=== PATIENT | male | born 1940 | race Caucasian/White ===

== ENCOUNTER 2020-12-22 21:03 | Inpatient (IN) | payer OTHER ==
[~2020-12-22] VITALS: Ht 188 cm; Wt 104.7 kg
--- NOTE | ~2020-12-22 | EMS ---
[address] [address] EMS Patient Care Report Name: JOSÉ MIGUEL SALINAS JR Room #: REG Ama#: [id number] Admission: 12/22/20 Attend Phys: Discharge: Date of : 42 Report #: [id number] THIS REPORT FOR: //name// Report Transmitted: 12/22/2020 21:01 EMS Care Summary [place], [place]/[facility] Incident [id number] @ 12/22/2020 20:18 Incident Location [address] [place], [place] [id number] Patient JOSÉ MIGUEL SALINAS Male, 80 Years 1940 Patient Address [address] [place] [address] Patient History Diabetes,Hypertension (HTN),Knee Replacement,Enlarged prostate, Patient Allergies Aspirin,Codeine, Patient Medications Clotrimazole, Glipizide, Metformin, Tamsulosin, Vitamin B12, Atorvastatin, Hydrochlorothiazide (Hctz), Insulin, Timolol, Acetaminophen, Lisinopril, Hydrocodone, Atropine, Cholecalciferol, Gabapentin, Chief Complaint ALTERED MENTAL STATUS Disposition Transported No Lights/[place] Dispatch Reason Diabetic Problem Transported To [facility] Narrative DISPATCHED TO A DIABETIC PROBLEM. ARRIVED ON SCENE TO FIND FIRE CREW TALKING WITH MALE PATIENT SEATED ON THE BED IN THE BACK BEDROOM. THEY WERE OBTAINING [place] [id number] EMS Patient Care Report Name: JOSÉ MIGUEL SALINAS JR Room #: REG [facility]#: [id number] Admission: 12/22/20 Attend Phys: Discharge: Date of : 42 Report #: [id number] VITALS AND PATIENT'S SON EXPLAINED THAT 3 DAYS AGO HIS FATHER HAD A BIOPSY OF HIS PROSTATE DONE AND SINCE THEN HE HAS BEEN ACTING MORE CONFUSED THAN NORMAL. HE SAID HE WAS ALSO GIVEN AN ANTIBIOTIC FOLLOWING HIS APPOINTMENT. THE PATIENT SAID HE FELT LIKE HE HAS BEEN HAVING CRAMPS SINCE THE PROCEDURE MAKING HIM FEEL LIKE HE HAS TO URINATE CONSTANTLY. HE SAID HE IS NOT ANY ANY PAIN AT THIS TIME. HE ALSO AGREED THAT HE FEELS A LITTLE MORE CONFUSED THAN NORMAL. PATIENT WAS ASSISTED IN WALKING TO THE COT AT THE FRONT DOOR, SEATED, SECURED WITH STRAPS, AND MOVED TO THE AMBULANCE. HIS VITALS WERE REOBTAINED AND IV WAS STARTED. PATIENT WAS GIVEN A URINAL BECAUSE HE SAID HE FELT LIKE HE NEEDED TO URINATE. HE WAS TRANSPORTED TO THE HOSPITAL WITH VITALS AND INTERVENTIONS MONITORED. UPON ARRIVAL AT THE HOSPITAL PATIENT WAS MOVED INTO ED ROOM 6 ON THE COT AND LIFTED OVER TO THE HOSPITAL BED. PATIENT CARE WAS TURNED OVER TO ED NURSING STAFF. Initial Vitals @20:42P: 107,BP: 206/86,CO: 19,SpO2: 93, @20:47P: 107,BP: 208/78,CO: 17,SpO2: 93, @20:36P: 106,R: 18,BP: 211/84,Pain: 0/10,GCS: 14,Glucose: 291,SpO2: 98,Revised Trauma: 12,GA Suspected: false @20:52P: 107,R: 16,BP: 208/89,Pain: 0/10,GCS: 14,CO: 16,SpO2: 93,Revised Trauma: 12, Assessments @20:31MENTAL:Confused,Person Oriented,Place Oriented,SKIN:HEENT:Eyes: Left: Blind,Head/Face: No Abnormalities,Neck/Airway: No Abnormalities,LUNG SOUNDS:General: No Abnormalities,Left Upper: No Abnormalities,Right Upper: No Abnormalities,Left Lower: No Abnormalities,Right Lower: No Abnormalities,ABDOMEN:General: No Abnormalities,Left Upper: No Abnormalities,Right Upper: No Abnormalities,Left Lower: No Abnormalities,Right Lower: No Abnormalities,PELVIS//GI:No Abnormalities,EXTREMITIES:Left Arm: Other,Left Leg: Other,Capillary Refill: Right Upper: < 2 Sec,Right Arm: No Abnormalities,Right Leg: No Abnormalities,PULSE:Radial: 2+ Normal,NEURO: Impression Altered Mental Status Procedures @20:31ALS AssessmentResponse: UnchangedSucceeded@20:44Saline Lock 10cc (18 ga) Site: Antecubital-RightResponse: UnchangedSucceeded@20:363-Lead ECGResponse: UnchangedSucceeded Timeline 20:16,Call Received 20:16,Dispatch Notified 20:18,Dispatched 20:18,En Route [address] [address] EMS Patient Care Report Name: JOSÉ MIGUEL SALINAS JR Room #: REG [facility] S[facility]#: [id number] Admission: 12/22/20 Attend Phys: Discharge: Date of : 42 Report #: [id number] 20:29,On Scene 20:31,At Patient 20:31,ALS Assessment,Response: UnchangedSucceeded, 20:36,3-Lead ECG,Response: UnchangedSucceeded, 20:36,BP: 211/84 M,PULSE: 106,RR: 18 R,SPO2: 98 Ox,ETCO2: ,B,PAIN: 0,GCS: 14, 20:42,BP: 206/86 M,PULSE: 107,RR: R,SPO2: 93 Ox,ETCO2: ,BG: ,PAIN: ,GCS: , 20:44,Saline Lock 10cc 18 ga Site: Antecubital-Right,Response: UnchangedSucceeded, 20:45,Depart Scene 20:47,BP: 208/78 M,PULSE: 107,RR: R,SPO2: 93 Ox,ETCO2: ,BG: ,PAIN: ,GCS: , 20:52,BP: 208/89 M,PULSE: 107,RR: 16 R,SPO2: 93 Ox,ETCO2: ,BG: ,PAIN: 0,GCS: 14, 20:57,At Destination 21:13,Call Closed Disclaimer v1.1 Copyright 2020 [employer] This EMS Care Summary contains data elements from the applicable legal record (which may be displayed differently). It is designed to provide pertinent information for the following purposes: continuity of care, clinical quality, and state data reporting. The complete legal record is available to ED staff and administrators of the receiving hospital in [employer] Patient Tracker. All data is provided "as is."
[2020-12-22 21:04] VITALS: BP 150/73
[2020-12-22 21:34] LABS: ABSOLUTE NEUTROPHILS 13.3 thou/uL (1.4-8.2); BASOPHILS 0.4 % (0.0-2.0); HEMATOCRIT 35.4 % (42.0-52.0); HEMOGLOBIN 11.9 gm/dL (14.0-18.0); LYMPHOCYTES 2.2 % (24.0-44.0); MCH 28.6 pg (26.0-34.0); MCHC 33.6 g/dL (28.0-37.0); MCV 85.3 fL (80.0-100.0); MONOCYTES 5.2 % (1.0-8.0); PLATELET COUNT 181 thou/uL (150-400); POLYS 92.2 % (36.0-66.0); RBC 4.15 mil/uL (4.50-6.00); RDW 14.2 % (10.5-14.5); WBC 14.4 thou/uL (4.0-11.0)
[2020-12-22 21:43] LABS: CALCIUM 9.1 mg/dL (8.5-10.1); POTASSIUM 4.9 mmol/L (3.5-5.1)
[2020-12-22 21:57] LABS: ALBUMIN 3.8 g/dL (3.4-5.0); TOTAL BILIRUBIN 0.8 mg/dL (0.2-1.0); TOTAL PROTEIN 8.1 g/dL (6.4-8.2)
[2020-12-22 22:59] LABS: URINE BILIRUBIN NEGATIVE (Negative); URINE BLOOD 2+ (Negative); URINE CLARITY CLEAR; URINE COLOR YELLOW; URINE GLUCOSE-RANDOM* 2+ (Negative); URINE KETONES NEGATIVE (Negative); URINE LEUKOCYTES-REFLEX NEGATIVE (Negative); URINE NITRITE-REFLEX NEGATIVE (Negative); URINE PROTEIN (DIPSTICK) 2+ (Negative); URINE SPECIFIC GRAVITY 1.025 (1.005-1.035); URINE UROBILINOGEN 0.2 E.U./dl (0.2-1.0)
[2020-12-22 23:07] LABS: BACTERIA-REFLEX 1-9 Few /HPF (None Seen); CASTS None Seen /LPF (None Seen); CRYSTALS None Seen /LPF (None Seen); MUCUS 0-3 Light strn/LPF (None Seen); SQUAMOUS 0-3 Few /LPF (0-3); URINE WBC-REFLEX 0-5 Rare /HPF (0-5)
[2020-12-23] VITALS (14 sets, daily range): BP systolic 138–163; BP diastolic 76–102
[2020-12-23 02:01] LABS: BE(vivo) -7.1 mmol/L (-2 to +3); PCO2 30.3 mmHg (35.0-45.0); PO2 160.6 mmHg (80.0-100.0); pH 7.366 (7.360-7.450)
--- NOTE | 2020-12-23 15:21 | NUR ---
PATIENT ARRIVED ON UNIT AT 1320. BELONGINGS ACCOUNTED FOR AND DOCUMENTED. PATIENT'S SON ARRIVED AT 1440 AND HE WAS UPDATED AND EDUCATED ON THE PATIENT'S CONDITION AND PLAN OF CARE.
--- NOTE | 2020-12-23 16:44 | NUR ---
Chart review. Unable to visit with patient r/t use of bipap. Noted he had prostate bx few days ago at the [facility]. Change in AMS. Note has son and daughter listed for contacts. No anticipated dc over the weekend. will cont. following as needed for dc needs. PCP is at [facility].
--- NOTE | 2020-12-23 23:30 | NUR ---
This RN spoke to Accie the third, son, at 1944. Discussed patient status and care plan. All questions answered.
[2020-12-24] VITALS (24 sets, daily range): BP systolic 116–160; BP diastolic 64–92
[2020-12-24 02:12] LABS: ABSOLUTE NEUTROPHILS 17.6 thou/uL (1.4-8.2); BASOPHILS 0.2 % (0.0-2.0); HEMATOCRIT 36.7 % (42.0-52.0); HEMOGLOBIN 11.8 gm/dL (14.0-18.0); MCH 27.4 pg (26.0-34.0); MCHC 32.3 g/dL (28.0-37.0); MONOCYTES 6.4 % (1.0-8.0); PLATELET COUNT 150 thou/uL (150-400); POLYS 89.4 % (36.0-66.0); RBC 4.31 mil/uL (4.50-6.00); RDW 14.7 % (10.5-14.5); WBC 19.7 thou/uL (4.0-11.0)
[2020-12-24 02:26] LABS: ALBUMIN 2.6 g/dL (3.4-5.0); CALCIUM 8.1 mg/dL (8.5-10.1); CREATININE 2.4 mg/dL (0.7-1.3); POTASSIUM 4.6 mmol/L (3.5-5.1); TOTAL BILIRUBIN 0.8 mg/dL (0.2-1.0); TOTAL PROTEIN 6.6 g/dL (6.4-8.2)
[2020-12-24 04:36] LABS: BE(vivo) -6.9 mmol/L (-2 to +3); HCO3 15.3 mmol/L (22.0-26.0); PCO2 22.8 mmHg (35.0-45.0); PO2 71.8 mmHg (80.0-100.0); pH 7.445 (7.360-7.450); sO2 95.4 % (92.0-98.0)
--- NOTE | 2020-12-24 05:58 | HC ---
[facility] [place] [address] CONSULTATION Name: JOSÉ MIGUEL SALINAS JR Room #: 237-P ADM IN M.R.#: [id number] Admission: 12/23/20 Attend Phys: Maverick Teran MD Discharge: Date of : 42 Report #: [id number] THIS REPORT FOR: cc: FAM - Family physician unknown FAM - Family physician unknown Kaden Hudson MD ~ DOC #: [id number] Kaden Hudson MD DATE OF SERVICE: 12/23/2020 INFECTIOUS DISEASE CONSULTATION ATTENDING PHYSICIAN: Dr. Teran. REASON FOR EVALUATION: Gram-negative septicemia, likely post-procedure prostate biopsy. Also, respiratory failure perhaps a component of pneumonitis with respiratory as a result of aspiration. HISTORY OF PRESENT ILLNESS: Chart reviewed and the patient examined. A 80-year-old with known history of diabetes mellitus, who also had a urinary tract dysfunction apparently underwent biopsy yesterday became increasingly encephalopathic. He was found to have a decrease in urine output and progressive weakness due to concerns about clinical deterioration, possible infectious complication. He was referred to the Emergency Room and found to have a lactic acid elevated at 5.1. Urinalysis was fairly unremarkable, did have 2+ blood. Coronavirus testing was negative. Blood cultures now with growth of gram-negative rods. He has been initiated on combination therapy with vancomycin and Zosyn. At this point, he is quite somnolent. He does arouse briefly, although he is maintained on BiPAP, difficult to ascertain his degree of encephalopathy, noted to have low-grade temperature elevations, although he has been tachycardic. ALLERGIES: None known. MEDICATIONS: Include vancomycin, pantoprazole, ipratropium and albuterol inhaler, acetaminophen, ondansetron, Zosyn as needed, p.r.n. analgesics and antiemetics. PAST MEDICAL HISTORY: As noted above, diabetes mellitus, history of BPH, left eye blindness. SOCIAL HISTORY: Nonsmoker. FAMILY HISTORY: Noncontributory. REVIEW OF SYSTEMS: Not reliably obtained. [address] [address] CONSULTATION Name: JOSÉ MIGUEL SALINAS Room #: 237-P [facility] IN M.R.#: [id number] Admission: 12/23/20 Attend Phys: Maverick Teran MD Discharge: Date of : 42 Report #: [id number] PHYSICAL EXAMINATION: GENERAL: Appears chronically ill, undernourished. He does arouse, make eye contact. VITAL SIGNS: Temperature 98.9, pulse 97, respirations 25, blood pressure 155/84, saturations 100%. HEENT: Normocephalic. Extraocular muscles intact. He does have BiPAP in place. NECK: Appears to be supple. LUNGS: Scattered coarse breath sounds. HEART: Borderline tachycardic. Appears regular with some ectopy. I do not appreciate any murmur. ABDOMEN: Mildly distended, somewhat firm. No peritoneal signs. GENITOURINARY AND RECTAL: Deferred. LABORATORY DATA: Blood cultures described above with gram-negative carl. Lactic acid initially 5.1, repeat now 2.4. ABGs: pH 7.366, pCO2 of 30.3, pO2 of 160.6 on FiO2 100%. Coronavirus testing was negative. Urinalysis: 2+ blood, 2+ protein, 0-5 white cells, ____ bacteria. Urine culture pending. Procalcitonin elevated at 2.70. Chest x-ray, patchy infiltrate medial right base. CBC: White count of 14.4, H and H 11.9 and 35.4, platelets of 181. Electrolytes: Sodium 133, potassium 4.9, chloride 100, bicarbonate is 20, anion gap of 13, BUN and creatinine 35 and 2.0, glucose of 259. LFTs unremarkable. Albumin 3.8. Total protein 8.1, estimated GFR 32. ASSESSMENT AND PLAN: 1. Gram-negative septicemia setting of a recent genitourinary tract procedure suspect that is the source, although ____ have marked pyuria. Agree with empiric coverage with Zosyn. 2. Pneumonitis perhaps on the basis of altered mental status due to sepsis with aspiration. Again, he remains quite tenuous at this point. Continue to monitor oxygen ventilatory support as required. 3. Diabetes mellitus. We will continue to monitor expectantly. Kaden Hudson MD JWB/ALL <ELECTRONICALLY SIGNED> By: Kaden Hudson MD 12/24/20 0558 1047 [id number] Kaden Hudson MD /nt
--- NOTE | 2020-12-24 09:18 | NUR ---
GARETT COPELAND AT 0700. SPOKE WITH PATIENT'S TWO DAUGHTERS AND THEY WERE UPDATED AND EDUCATED ON THE PATIENT'S CONDITION AND PLAN OF CARE.
[2020-12-25] VITALS (25 sets, daily range): BP systolic 86–131; BP diastolic 47–75
--- NOTE | 2020-12-25 04:21 | NUR ---
ASSUMED CARE OF PATIENT AT 1900. PATIENT FEBRILE, RECTAL THERMOMETER PLACED FOR CONSISTENT MONITORING. TYLENOL GIVEN WITH NO REDUCTION IN TEMP. ICE PACKS PLACE, PATIENT THREW THEM ON THE FLOOR. ORDER FOR 1 DOSE OF IBPROFEN OBTAINED, SLIGHT REDUCTION IN TEMP. TYLENOL GIVEN AGAIN, APPROACHING NORMAL TEMP. REMAINS TACHYCARDIC. NOT PROGRESSING TOWARDS POC GOALS AT THIS TIME.
[2020-12-25 04:28] LABS: CALCIUM 7.6 mg/dL (8.5-10.1); CREATININE 2.9 mg/dL (0.7-1.3); POTASSIUM 3.4 mmol/L (3.5-5.1); TOTAL BILIRUBIN 0.9 mg/dL (0.2-1.0); TOTAL PROTEIN 5.9 g/dL (6.4-8.2)
--- NOTE | 2020-12-25 08:49 | NUR ---
RN SPOKE WITH PT'S PATEL BREWER AND GAVE PT UPDATE. DANIELLA STATES SHE WILL BE IN LATER TODAY TO SEE THE PATIENT.
--- NOTE | 2020-12-25 11:08 | NUR ---
A #6F TRIPLE LUMEN CENTRAL LINE WAS PLACED PER HOSPITAL POLICY AFTER A BEDSIDE TIMEOUT WAS COMPLETED. THE 25CM LINE ADVANCED WITHOUT DIFFICULTY TO 7CM EXTERNAL. THE LINE WAS PLACED IN THE RIGHT IJ- WHICH WAS WIDLEY PATENT. A STAT CHEST XRAY SHOWS LINE IN GOOD POSITION FOR USE
--- NOTE | 2020-12-25 11:39 | NUR ---
2L NS BOLUS GIVEN PER RENAL AND SODIUM BICARB STARTED. POTASSIUM REPLACED PER RENAL. CENTRAL LINE PLACED PER RENAL. BLOOD CULTURES DRAWN, 2 SETS AND SENT TO LAB. UROLOGY RECONSULTED PER REQUEST OF DR. PATRICIA. ALSO CONSULTED GENERAL SURGERY WHO ROUNDED ON PT THIS AM AND AGREE'S WITH UROLOGY RECONSULT. URINE OUTPUT REMAINS MINIMAL AND RENAL WELL HOSPITALIST ARE AWARE. PT REMAINS TACHYCARDIC AND CARDIOLOGY IS AWARE AND STATED THE TACHYCARDIA IS NOT A CAUSE OF A HEART ISSUE RATHER THAN BODY RESPONSE TO ISSUES IT IS FACING. WILL CONTINUE TO CLOSELY MONITOR PT.
--- NOTE | 2020-12-25 12:11 | NUR ---
PT'S SON ARRIVED AND IS BEDSIDE WITH PATIENT. PT VERY HAPPY TO SEE HIS SON. PT UPDATE GIVEN TO SON.
--- NOTE | 2020-12-25 13:31 | NUR ---
PATIENT HAS BEEN OFF OF BIPAP SINCE APPROX. 0130 ON 12/25. PATIENT ON 2LNC AND MAINTAINING SATURATION. NO ISSUES ALL BREATHING TREATMENTS WERE ADMINISTERED.
--- NOTE | 2020-12-25 14:15 | NUR ---
DR. MIRANDA HAS CALLED TO CHECK ON THE PT AT 0930 AND 1345. PT UPDATE GIVEN TO DR AT TIME OF EACH CALL. PT CONTINUES TO HAVE MINIMAL URINE OUTPUT DESPITE BEING GIVEN 2 L OF NS BOLUS. NEW ORDER RECEIVED FOR 3 BOLUS OF 1L NS. PT IS ALSO TO REMAIN ON BICARB WELL PER DR. MIRANDA. WILL CONTINUE TO CLOSELY MONITOR PT.
--- NOTE | 2020-12-25 17:53 | NUR ---
RN CALLED IR DEPARTMENT TO CALL IR CONSULT FOR DR. CHAMBERS. STAFF ANSWERED PHONE AND STATED REQUEST FOR IR CONSULT TO DRAIN FLUID FOR PT PRINTED IN DEPARTMENT AND WAS PLACED IN PHYSICIAN'S IN BOX. STAFF STATES THERE ARE NO IR PHYSICIANS IN HOUSE AT THIS TIME AND SINCE ORDER IS ROUTINE, PHYSICIAN WILL SEE IT IN AM OF 12/26.
--- NOTE | 2020-12-25 19:15 | NUR ---
UROLOGY WAS RECONSULTED TODAY AND ROUNDED ON PT. CT CYSTOGRAM ORDERED AND AFTER RESULTS CALLED TO UROLOGIST, ORDER TO ROUTINE CONSULT IR TO DRAIN FLUID COLLECTION.
--- NOTE | 2020-12-25 22:44 | NUR ---
TYLENOL GIVEN FOR FEVER. TEMP CURRENTLY 101.8. PT C/O FEELING COLD AND WANTS MORE BLANKETS, BUT HE UNDERSTANDS HE HAS A FEVER AND CANNOT BE COVERED WITH MULTIPLE BLANKETS. C/O GENERALIZED BODY ACHES AND LEFT LE CHRONIC PAIN. PER RENAL, NO NARCOTICS DUE TO POOR RENAL FUNCTION. ST W/ PVCS. HR 110S-120S. IV ABX AND IVF INFUSING ORDERED. PT REFUSED TO EAT DINNER, DESPITE ENCOURAGEMENT TO EAT SOME FOOD. BOLTON IN PLACE WITH ADEQUATE UO SO FAR THIS EVENING. NOT PROGRESSING WELL TOWARD POC GOALS. WILL CONTINUE TO MONITOR CLOSELY. 2206 - PT'S SON (JOSÉ MIGUEL SALINAS III) CALLED UNIT. UPDATE PROVIDED ON POC AND PLAN FOR IR TO DRAIN ABDOMEN TOMORROW. ALL QUESTIONS ANSWERED.
[2020-12-26] VITALS (39 sets, daily range): BP systolic 92–152; BP diastolic 59–91
--- NOTE | 2020-12-26 04:05 | NUR ---
PT DID NOT SLEEP MUCH DURING THE NIGHT. HE CONTINUED TO C/O BODY ACHES EVEN AFTER GIVEN TYLENOL. NO NARCOTICS OR NSAIDS PER RENAL DUE TO POOR KIDNEY FUNCTION. FEVER IS SLOWLY IMPROVING WITH TYLENOL. CURRENT TEMP 100.5, WHICH IS THE LOWEST HIS FEVER HAS BEEN SO FAR THIS SHIFT. REPOSITIONED HE WOULD ALLOW TO PREVENT ANY SKIN BREAKDOWN. SPO2 >92% ON 2L NC. FALL PRECAUTIONS IN PLACE. NOT PROGRESSING WELL TOWARD POC GOALS. WILL MONITOR FURTHER.
[2020-12-26 04:43] LABS: ALBUMIN 1.6 g/dL (3.4-5.0); CREATININE 3.2 mg/dL (0.7-1.3); PHOSPHORUS 2.4 mg/dL (2.6-4.7); POTASSIUM 3.3 mmol/L (3.5-5.1)
--- NOTE | 2020-12-26 07:11 | EKG ---
[address] [address] ELECTROCARDIOGRAM REPORT Name: JOSÉ MIGUEL SALINAS KENDRA Room #: 237-P ADM IN M.R.#: [id number] Admission: 12/23/20 Attend Phys: Maverick Teran MD Discharge: Date of : 42 Report #: [id number] [facility] Test Date: 2020-12-24 Test Time: 15:47:11 Pat Name: JOSÉ MIGUEL SALINAS Department: Room: 237 P Gender: M Call Circuit Worker: NERY : 1940 Requested By: Marlee Haynes Order Number: [id number] MD: Singh Wang Measurements Intervals [place] Rate: 130 P: -69 VA: 127 QRS: 3 QRSD: 102 T: 87 QT: 290 QTc: 427 Interpretive Statements Sinus tachycardia Multiple ventricular premature complexes Nonspecific repol abnormality, diffuse leads No previous ECG available for comparison Electronically Signed On 12-26-2020 7:11:36 CDT by Singh Wang [email or web address] <ELECTRONICALLY SIGNED> By: Singh Wang MD, [facility] 12/26/20 0711 1547 1547 Singh Wang MD, FACC /EPI
[2020-12-26 09:52] LABS: HEMATOCRIT 29.5 % (42.0-52.0); MCHC 32.3 g/dL (28.0-37.0); MCV 83.3 fL (80.0-100.0); PLATELET COUNT 161 thou/uL (150-400); RBC 3.54 mil/uL (4.50-6.00); WBC 20.8 thou/uL (4.0-11.0)
[2020-12-26 09:54] LABS: HEMOGLOBIN 9.5 gm/dL (14.0-18.0)
[2020-12-26 10:10] LABS: ALBUMIN 1.6 g/dL (3.4-5.0); CALCIUM 7.2 mg/dL (8.5-10.1); POTASSIUM 3.3 mmol/L (3.5-5.1); TOTAL BILIRUBIN 0.9 mg/dL (0.2-1.0); TOTAL PROTEIN 5.4 g/dL (6.4-8.2)
--- NOTE | 2020-12-26 10:30 | NUR ---
Chart review. Discussed during am rounds and los. Unable to visit r/t discomfort. Possible with be going to OR today. Cm visited with his son chance STERLING, he reported dad lives with him, he is independent. has cane. does his own laundry. son cooks. manage own medication. drives vehicle, mows the grass. [facility]. [facility] not [facility]. Stephenie with [facility] called and cm passed on to cm team, rt question if stable to [facility] to [facility] and his . will cont following as needed for dc needs.
[2020-12-26 11:03] LABS: ABSOLUTE NEUTROPHILS 18.9 thou/uL (1.4-8.2)
[2020-12-26 11:04] LABS: ANISOCYTOSIS 1+
--- NOTE | 2020-12-26 11:33 | 2DMMODE ---
[facility] [address] [place] [address] 2 D/M-MODE ECHOCARDIOGRAM Name: JOSÉ MIGUEL SALINAS Room #: 237-P ADM IN M.R.#: [id number] Admission: 12/23/20 Attend Phys: Maverick Teran MD Discharge: Date of : 42 Report #: [id number] THIS REPORT FOR: cc: FAM - Family physician unknown FAM - Family physician unknown Antoine Weeks MD [facility] ~ APPROVED REPORT Study performed: 12/26/2020 08:42:44 EXAM: Comprehensive 2D, Doppler, and color-flow Echocardiogram Patient Location: ICU Room #: 237 Status: routine BSA: 2.29 HR: 110 bpm BP: 131/71 mmHg Rhythm: Atrial Fibrillation Other Information Study Quality: Good Indications Diabetes Sepsis CAD Tachycardia Cardiomyopathy 2D Dimensions RVDd: 42.13 mm IVSd: 11.93 (7-11mm) LVOT Diam: 24.16 (18-24mm) LVDd: 41.56 mm PWd: 11.57 (7-11mm) Ascending Ao: 28.07 (22-36mm) LVDs: 30.70 (25-40mm) Left Atrium: 48.80 (27-40mm) Aortic Root: 35.83 mm IVC: 33.00 mm Volumes Left Atrial Volume (Systole) Single Plane 4CH: 69.58 mL Single Plane 2CH: 50.29 mL LA ESV Index: 29.00 mL/m2 [facility] [address] [place] [address] 2 D/M-MODE ECHOCARDIOGRAM Name: JOSÉ MIGUEL SALINAS KENDRA Room #: 237-P ADM IN M.R.#: [id number] Admission: 12/23/20 Attend Phys: Maverick Teran MD Discharge: Date of : 42 Report #: [id number] Aortic Valve AoV Peak Jagdish.: 1.01 m/s AO Peak Gr.: 4.08 mmHg LVOT Max P.21 mmHg LVOT Max V: 0.90 m/s GOOD Vmax: 4.06 cm2 Pulmonary Valve PV Peak Jagdish.: 0.90 m/s PV Peak Gr.: 3.27 mmHg Tricuspid Valve TR Peak Jagdish.: 3.19 m/s TR Peak Gr.: 40.68 mmHg PA Pressure: 51.00 mmHg Left Ventricle The left ventricle is normal size. Mild concentric left ventricular hypertrophy. Left ventricular systolic function is borderline. Mild anterior hypokinesis. LVEF is 50%. This study is not technically sufficient to allow evaluation of the LV diastolic function due to atrial fibrillation. Right Ventricle The right ventricle is normal size. The right ventricular systolic function is normal. Atria The left atrium size is normal. The right atrium size is normal. Aortic Valve The aortic valve is mildly calcified. No aortic regurgitation is present. There is no aortic valvular stenosis. Mitral Valve The mitral valve is normal in structure. Mild mitral regurgitation. No evidence of mitral valve stenosis. Tricuspid Valve The tricuspid valve is normal in structure. There is trace tricuspid regurgitation.Estimated PAP 50 mmHg. There is moderate pulmonary hypertension. Pulmonic Valve The pulmonary valve is normal in structure. There is no pulmonic valvular regurgitation. [facility] [address] [place] [address] 2 D/M-MODE ECHOCARDIOGRAM Name: JOSÉ MIGUEL SALINAS Room #: 237-P ADM IN M.R.#: [id number] Admission: 12/23/20 Attend Phys: Maverick Teran MD Discharge: Date of : 42 Report #: [id number] Great Vessels The aortic root is normal in size. IVC is dilated and collapses <50% with inspiration. Pericardium There is no pericardial effusion. <Conclusion> Left ventricular systolic function is borderline. LVEF is 50%. Mild anterior hypokinesis. The aortic valve is mildly calcified. No aortic regurgitation or stenosis. The mitral valve is normal in structure. Mild mitral regurgitation. There is trace tricuspid regurgitation. Estimated pulmonary artery pressure of 50 mmHg. There is no pericardial effusion. <ELECTRONICALLY SIGNED> By: Antoine Weeks MD, [facility] 12/26/20 1133 1133 1133 Antoine Weeks MD, FACC /INF
--- NOTE | 2020-12-26 17:56 | NUR ---
RN RECIEVED IN REPORT THAT PATIENT HAD SOME ABDOMINAL TENDERNESS, FEBRILE, AND BODY ACHES ASSOCIATED WITH FEVER. HOWEVER, WHEN RN DID AM ASSESSMENT, ABDOMEN WAS FIRM, 10/10 PAIN IN LEFT LOWER QUADRANT. HOME IMPROVEMENT INSTALLER/ICU DOC, ATTENDING, UROLOGY, AND GENERAL SURGERY WERE ALL UPDATED. PATIENT TAKEN TO OPERATING ROOM TO HAVE A PELVIC HEMATOMA EVACUATED. 10 CC BLOOD LOSS. TWO ALVARO DRAINS PLACED. AT 1745 HOURS, THE [facility] CONTACTED THE PATIENT'S SON, AND THEN SPOKE TO THIS RN REGARDING THE RESULTS OF THE BIOPSY COMPLETED ON 12/21. THE UROLOGIST FROM THE 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 THIS WAS CALLED TO UROLOGY, PULMONOLOGY/ICU, GENERAL SURGERY, AND ATTENDING.
--- NOTE | 2020-12-26 21:20 | NUR ---
PT HAD NO URINE OUTPUT FOR ABOUT 2 HOURS, ATTEMPTED TO FLUSH BOLTON AND ALL RETURN CAME OUT AROUND BOLTON INSERTION. NOTED THICK LOOKING SUBSTANCE ALONG EDGE OF BOLTON TUBING. PATIENT YELLING OUT IN PAIN WHEN ATTEMPTING TO FLUSH. CALL TO UROLOGY WHO STATED NOTHING WITH THE BLADDER WAS TOUCHED DURING SURGERY AND TO NOT CALL HIM WITH ISSUES. BOLTON REMOVED BY THIS RN IN PREPARATION FOR REPLACEMENT. WHILE SETTING UP STERILE FIELD, PT YELLED LOUDLY AND URINATED, EXPELLING SEVERAL MODERATELY SIZED, [place]AN, THICK PIECES OF WHAT APPEARS TO BE TISSUE. BOLTON REPLACED AND URINE FLOWING WELL. WILL MONITOR AND FLUSH NECESSARY.
[2020-12-27] VITALS (44 sets, daily range): BP systolic 98–128; BP diastolic 50–78
--- NOTE | 2020-12-27 04:23 | NUR ---
SPOKE WITH PT SON, GAVE UPDATE, ANSWERED ALL QUESTIONS WITHIN SCOPE OF PRACTICE
--- NOTE | 2020-12-27 04:34 | NUR ---
pt is pleasant, forgetful, answers all orientation questions correctly, repeats questions over. resting quietly off and on, endorses pain, but states that over all it is better especially in abd and knee.
[2020-12-27 04:40] LABS: ALBUMIN 1.5 g/dL (3.4-5.0); CALCIUM 6.9 mg/dL (8.5-10.1); CREATININE 2.7 mg/dL (0.7-1.3); PHOSPHORUS 3.3 mg/dL (2.5-4.9); POTASSIUM 3.7 mmol/L (3.5-5.1)
--- NOTE | 2020-12-27 08:30 | NUR ---
ASSUMED CARE OF PT AT 0700 DR. FORREST AT BEDSIDE AT 0815, NO NEW ORDERS GIVEN DR. NÚÑEZ AT BEDSIDE AT 0830, HE IS GOING TO STOP HIS FLUIDS AND GIVE A DOSE OF LASIXS SPOKE TO DR. WEST ON THE PHONE AT 0830 HE JUST WANTED AND UPDATE.
[2020-12-28] VITALS (16 sets, daily range): BP systolic 117–160; BP diastolic 59–95
--- NOTE | 2020-12-28 04:35 | NUR ---
PT IS PROGRESSING TOWARD GOALS, VSS, AFEBRILE, TOLERATES TURNS. DOES CONT TO ENDORSE PAIN BUT PAIN IN L KNEE IS RATED HIGHER THAN PAIN IN ABD. ALVARO BULB DRAINAGE DRECREASING. EDEMA SLIGHTLY INCREASED.
[2020-12-28 05:00] LABS: ALBUMIN 1.7 g/dL (3.4-5.0); CALCIUM 7.2 mg/dL (8.5-10.1); CREATININE 2.3 mg/dL (0.7-1.3); PHOSPHORUS 3.2 mg/dL (2.5-4.9); POTASSIUM 3.6 mmol/L (3.5-5.1)
--- NOTE | 2020-12-28 09:17 | NUR ---
Cm visited with pt at bedside, a & o person, time and place (hospital). Education on [facility] and possible transfer when bed is open or use medicare Life time res, 60 days with co-pay. He requested to talk with his son 1st before making and decision.
--- NOTE | 2020-12-28 15:01 | NUR ---
Director Of Slot Operations spoke with son Guru STERLING regarding tx to the [facility] if a bed becomes available or staying here and using his medicare lifetime reserve days. He will discuss with the pt and let us know. No beds available at the [facility] today. The pt does not have a medicare supplemental plan or medicaid to help with any out of pocket or copays.
--- NOTE | 2020-12-28 15:35 | NUR ---
PATIENT TRANSFERED FROM ICU TO CCU. SINUS RHYTHM/TACH ON THE MONTIOR. RATES LEFT KNEE PAIN AT 10/10 - STATES IS CHRONIC. VERY TENDER TO TOUCH. PRN MEDICATION ADMINISTERED. IV ABX INFUSING. BOLTON PATENT. PT ATTEMPTED TO WORK WITH PATIENT THIS AFTERNOON. VOICES NO NEEDS OR CONCERNS AT THIS TIME.
[2020-12-29 01:57] LABS: ABSOLUTE NEUTROPHILS 13.6 thou/uL (1.4-8.2); BASOPHILS 0.3 % (0.0-2.0); EOSINOPHILS 0.9 % (0.0-3.0); HEMATOCRIT 27.5 % (42.0-52.0); LYMPHOCYTES 7.7 % (24.0-44.0); MCH 27.2 pg (26.0-34.0); MCHC 32.7 g/dL (28.0-37.0); MCV 83.3 fL (80.0-100.0); MONOCYTES 8.6 % (1.0-8.0); PLATELET COUNT 156 thou/uL (150-400); POLYS 82.5 % (36.0-66.0); RDW 14.8 % (10.5-14.5); WBC 16.5 thou/uL (4.0-11.0)
[2020-12-29 02:19] LABS: ALBUMIN 1.6 g/dL (3.4-5.0); CALCIUM 7.5 mg/dL (8.5-10.1); PHOSPHORUS 2.7 mg/dL (2.6-4.7); POTASSIUM 3.5 mmol/L (3.5-5.1)
[2020-12-29 03:37] VITALS: BP 154/81
--- NOTE | 2020-12-29 04:17 | NUR ---
ASSESSMENT CHARTED, MEDS CHARTED GIVEN. PATIENT TRANSFERED FROM ICU DURING DAY SHIFT. CONFUSED BUT VERY PLEASANT. SINUS TACH WITH BBB ON TELEMETRY, SINUS ARYTHMIA WITH BBB ON TELEMETRY. PATIENT HAS SCROTAL EDEMA AND LEFT LEG EDEMA. ON ROOM AIR. BOLTON IN PLACE. PATIENT HAS 2 ALVARO DRAINS WITH LITTLE OUTPUT. C/O PAIN 10/10 IN LEFT LEG. MEDS GIVEN. FALL PRECAUTIONS IN PLACE DURING SHIFT.
[2020-12-29 07:25] VITALS: BP 163/88
[2020-12-29 11:15] VITALS: BP 162/86
--- NOTE | 2020-12-29 12:10 | NUR ---
Pt now on ccu and continues on iv atb. CM has spoken with the [facility] and they do have a tele bed today if clinical accepted for transfer. [employer] Vault Attendant reviewed options with the pt at bedside and his son via speaker phone. Both are in agreement to [facility] to the [facility] if [facility] can accept him today. He does not have any secondary ins plan and does utilize the [facility] for pcp and meds. CM has faxed clinical to their transfer RN for consideration. Chart copy in progress as well as radiology (disc). Likely transfer to the [facility] later today discussed with the care team.
[2020-12-29 15:30] VITALS: BP 127/68
[2020-12-29 15:45] VITALS: BP 173/77
--- NOTE | 2020-12-29 16:43 | NUR ---
FAXED SNF REFERRAL WITH NEGATIVE COVID RESULT (12/13) TO [facility] AND [facility]. NOTED DISCHARGE TOMORROW, 12/30/20 OR 12/31/20 AND POSSIBLE LONG-TERM CARE AFTER SKILLED DAYS. WILL CALL TO CONFIRM THE FACILITIES RECEIVED AND BED AVAILABILITY.
--- NOTE | 2020-12-29 17:03 | NUR ---
PT ALERT AND ORIENTED TIMES FOUR. VSS. SR ON TELE. BOLTON TO TERRI. PT C/O PAIN PRN PAIN MEDICATIONS GIVEN WITH GOOD RELEIF. PT TOLEATES MEDS, BUT HAS A VERY POOR APPETITE. PT WORKED FAIR WITH PT/OT. WILL CONTINUE TO MONITOR.
[2020-12-29 19:44] VITALS: BP 173/88
--- NOTE | 2020-12-30 00:55 | NUR ---
ASSESSMENTS CHARTED, MEDS CHARTED GIVEN. PATIENT RESTING IN BED DURING SHIFT. C/O PAIN IN LEFT LEG 02/07. MEDICATED. PATIENT WAS SUPPOSE TO TRANSFER TO THE [place] DURING THE DAY, BUT HIS BED WAS GIVEN AWAY. PLAN IS TO TRANSFER TODAY WHEN A BED BECOMES AVAILABLE. FALL PRECAUTIONS IN PLACE DURING SHIFT.
[2020-12-30 04:10] VITALS: BP 184/79
[2020-12-30 05:37] LABS: ALBUMIN 1.6 g/dL (3.4-5.0); CALCIUM 7.9 mg/dL (8.5-10.1); CREATININE 1.9 mg/dL (0.7-1.3); POTASSIUM 3.1 mmol/L (3.5-5.1)
[2020-12-30 07:25] VITALS: BP 177/81
--- NOTE | 2020-12-30 14:15 | NUR ---
No beds at the [facility] per their transfer nurse. Weekend staff to call the transfer nurse at [phone] or mobile number [phone] to check on a bed Sat/Sun. Pt and son are aware of above and agreeable to tx once a bed is confirmed. [facility] form is on the chart for ambulance transport and the transfer form is also on the chart copy for completion once tx arrangements are in place. Will follow.
[2020-12-30 15:25] VITALS: BP 145/78
[2020-12-30 19:25] VITALS: BP 149/53
[2020-12-30 23:20] VITALS: BP 149/72
--- NOTE | 2020-12-31 03:25 | NUR ---
PT IS ALERT AND ORIENTED X4. LUNGS ARE CLEAR TO DIMINISHED . MED SURG/ [facility]. BOLTON TO DD. LEFT KNEE PAIN. PAIN MEDS GIVEN FOR COMOFORT FOR PT . RELFIEF AND PT SLEEPING AFTERWARDS. LABS DRAWN THIS AM AND SENT. CALL LIGHT WITHIN REACH IF NEEDS ASSISTANCE. WATCHES TV AT TIME.
[2020-12-31 04:14] VITALS: BP 149/72
[2020-12-31 04:23] LABS: ALBUMIN 1.6 g/dL (3.4-5.0); CALCIUM 7.8 mg/dL (8.5-10.1); CREATININE 1.8 mg/dL (0.7-1.3); PHOSPHORUS 3.3 mg/dL (2.5-4.9); POTASSIUM 3.1 mmol/L (3.5-5.1)
[2020-12-31 08:11] VITALS: BP 157/91
--- NOTE | 2020-12-31 10:34 | NUR ---
KHADAR CONTACTED [facility] TRANSFER NURSE AT [phone], AND LEFT FOR BED INQUIRY ON THIS DAY. KHADAR FOLLOWING FOR D/C PLAN
[2020-12-31 16:07] VITALS: BP 154/68
--- NOTE | 2020-12-31 18:03 | NUR ---
TAKE OVER PATIENT AND GET REPORT FROM MAKENNA MITCHELL ON THE FLOOR. PT IS A&0*4 AND FATIGUE. PATINET IS ON ROOM AIR AND TELE MONITOR: HR BETWEEN 90-100 BPM. PT STAY IN BEDREST DUE TO THE GENERAL WEAKNESS. PT REPORT SEVER CHRONIC PAIN ON THE LEFT LEG ESPECIALLY ON THE LEFT KNEE AREA. LIDOCAINE PATCH APPLIED AND TWO DOSE OF NORCO GIVEN DURING THIS DAY SHIFT. BS MONITOR BEFORE MEALS AND 4 UNIT OF INSULIN GIVEN EACH TIME. BOLTON IS INTENT AND SERCURED. BOLTON CARE GIVEN BY COFFEE TASTER. PT HAS BEEN USE THE CALL LIGHT APPROPRIATELY. WILL KEEP MONITOR PATIENT'S PAIN, VS, BS, I&O, WOULD DRAIN AND SAFETY UNTIL SHIFT CHANGE.
[2020-12-31 19:38] VITALS: BP 143/64
[2021-01-01 03:30] VITALS: BP 155/78
[2021-01-01 06:50] LABS: ALBUMIN 1.6 g/dL (3.4-5.0); CALCIUM 7.7 mg/dL (8.5-10.1); CREATININE 1.6 mg/dL (0.7-1.3); POTASSIUM 3.4 mmol/L (3.5-5.1)
--- NOTE | 2021-01-01 06:52 | NUR ---
NOTIFIED BUILDING INSPECTOR THAT BOLTON HAS HEMATURIA AND SOME BLOOD NOTED AROUNG RIGHT IJ SITE, PT NOT ON ANTICOAGULANTS. WILL TELL DAY SHIFT NS TO INFORM DR UPON ROUNDS ORDERED. UA ORDERED SINCE NO RECENT UA SENT.
--- NOTE | 2021-01-01 07:29 | NUR ---
PT PROGRESSING TOWARDS D/C GOALS SLOWLY. VSS. TELE DC'C ORDERED. MILD CONFUSION NOTED AT TIMES. FORGETFUL AND [place] AT TIMES. WOUND CARE TO ABDOMED DONE. INCISION TO ABDOMEN IS WELL APPROXIMATED TAL INTACT. ALVARO INTACT TO R AND L ABDOMEN. NO DRAINAGE NOTED FROM EITHER ALVARO. COLOSTOMY HAD VERY LITTLE LIGHT BROWN STOOL NOTED. BOLTON HAS PINKISH RED HENATURI NOTED IN BOLTON. SHELVING SUPERVISOR WAS NOTIFIED. INFORMED DAY SHIFT NS TO TELL DR UPON ROUNDS RE HEMATURIA AND RIJ HAS SOME LIGHT BLOODY DRAINAGE NOTED. PT IS NOT ON ANTICOAGULANTS. WILL SEND UA ORDERED BY SHELVING SUPERVISOR. MEDICATED FOR LEFT KNEE PAIN 3X LAST NIGHT.
[2021-01-01 07:45] VITALS: BP 161/68
[2021-01-01 09:14] LABS: URINE BLOOD 3+ (Negative); URINE CLARITY CLOUDY; URINE COLOR RED; URINE GLUCOSE-RANDOM* NEGATIVE (Negative); URINE KETONES 2+ (Negative); URINE LEUKOCYTES 3+ (Negative); URINE NITRITE NEGATIVE (Negative); URINE PROTEIN (DIPSTICK) 3+ (Negative); URINE SPECIFIC GRAVITY 1.025 (1.005-1.035); URINE UROBILINOGEN 0.2 E.U./dl (0.2-1.0)
[2021-01-01 09:17] LABS: ICTOTEST (BILI CONFIRMATORY) Negative (Negative); URINE BILIRUBIN NEGATIVE (Negative)
[2021-01-01 09:49] LABS: CASTS None Seen /LPF (None Seen); CRYSTALS None Seen /LPF (None Seen); SQUAMOUS None Seen /LPF (0-3)
[2021-01-01 09:50] LABS: BACTERIA >30 Many /HPF (None Seen); URINE RBC >20 Many /HPF (NONE SEEN); URINE WBC >25 Many /HPF (NONE SEEN)
--- NOTE | 2021-01-01 17:28 | NUR ---
Assumed pt care this am, vs stable. Small frequent feedings done through out the shift. Blood sugar monitored, diet and medications are tolerated well. Small frequent feedings and hydrations through out the shift. Pain is managed with medication partial relief noted. FC in place draining peach urine. Awaiting transfer to [place].
--- NOTE | 2021-01-01 17:45 | NUR ---
Assumed pt care this am, vs stable. Small frequent feedings done through out the shift. Blood sugar monitored, dient and medicatiosn tolerated well. Small fequent feedings and hydration done through out the shift. Pain is managed with meedications, partial relief is noted. FC in place draining peach colored urine. [facility].
[2021-01-01 19:59] VITALS: BP 150/625
--- NOTE | 2021-01-02 04:34 | NUR ---
Pt. rested quietlly during the night when checked on during frequent rounds. Po pain meds given (see emar) with some relief noted. Filiberto drains patent to abdomen. Bed alarm is on.
[2021-01-02 07:25] VITALS: BP 160/83
[2021-01-02 14:20] LABS: HEMATOCRIT 28.9 % (42.0-52.0); HEMOGLOBIN 9.3 gm/dL (14.0-18.0); MCV 84.2 fL (80.0-100.0); RBC 3.44 mil/uL (4.50-6.00); RDW 15.1 % (10.5-14.5)
[2021-01-02 15:40] VITALS: BP 146/75
--- NOTE | 2021-01-02 18:20 | NUR ---
ASSUMED CARE OF PATIENT AT SHIFT CHANGE. ASSESSMENT CHARTED. MEDICATIONS ADMINISTERED PER EMAR. VSS. PATIENT IS ALERT AND ORIENTED BUT CAN BE CONFUSED AT TIMES ESPECIALLY IN THE EVENING. PATIENTS APPETITE IS RETURNING AND HE IS TOLERATING PO INTAKE WELL. PATIENT CONTINUES TO VOICE PAIN THROUGHOUT SHIFT; PARTIALLY RELIEVED BY PO ANALGESIC. SURGICAL INCISION REMAINS INTACT. ALVARO X2 INTACT WITH SCANT DRAINAGE. PATIENT HAVING BM'S (SMEARS); INCONTINENCE THROUGHOUT SHIFTS. BOLTON PATENT IN PLACE WITH GOOD OUTPUT; HEMATURIA STILL PRESENT. UA CULTURE COLLECTED AND SENT TO LAB. REPOSITIONING OFFERED EVERY 2 HOURS AND NEEDED. LIDOCAINE PATCH TO LLE ABOVE KNEE INPLACE. PATIENT VOICING NO FURTHER NEEDS. WILL CONTINUE TO MONITOR & FOLLOW PLAN OF CARE
[2021-01-02 21:35] VITALS: BP 144/72
--- NOTE | 2021-01-03 04:28 | NUR ---
Pt. rested quietly at intervals during the night when checked on during frequent rounds. He c/o knee pain and po pain meds given (see emar) with some relief noted. Bed alarm is on.
[2021-01-03 07:38] VITALS: BP 159/80
[2021-01-03 10:52] LABS: ABSOLUTE NEUTROPHILS 9.7 thou/uL (1.4-8.2); BASOPHILS 0.7 % (0.0-2.0); HEMATOCRIT 26.9 % (42.0-52.0); HEMOGLOBIN 8.7 gm/dL (14.0-18.0); LYMPHOCYTES 7.9 % (24.0-44.0); MCH 27.2 pg (26.0-34.0); MCHC 32.1 g/dL (28.0-37.0); MCV 84.5 fL (80.0-100.0); MONOCYTES 7.1 % (1.0-8.0); PLATELET COUNT 373 thou/uL (150-400); POLYS 83.3 % (36.0-66.0); RBC 3.19 mil/uL (4.50-6.00); RDW 14.7 % (10.5-14.5); WBC 11.7 thou/uL (4.0-11.0)
[2021-01-03 11:07] LABS: ALBUMIN 1.7 g/dL (3.4-5.0); CALCIUM 7.8 mg/dL (8.5-10.1); CREATININE 1.5 mg/dL (0.7-1.3); POTASSIUM 3.7 mmol/L (3.5-5.1); TOTAL BILIRUBIN 0.5 mg/dL (0.2-1.0); TOTAL PROTEIN 6.1 g/dL (6.4-8.2)
[2021-01-03] MEDS ORDERED: LEVOFLOXACIN500 MG PO (12:29)
--- NOTE | 2021-01-03 15:23 | NUR ---
[facility]. PT HAD REPEAT CT THIS AM. THIS IMAGING WAS CLOUDED AND PUT ON A DISC. CM NOTIFIED PT AND SON OF TRANSFER. THEY ARE AWARE AND AGREEABLE. CHART COPY MADE. UPDATES SENT TO THE [place]. [facility] TRANSPORT SET UP FOR EARLIEST [address] FEEDER. NURSE GIVEN INFO FOR REPORT. NO OTHER CM INTERVENTION INDICATED. CASE CLOSED.
[2021-01-03 15:40] VITALS: BP 130/63
[2021-01-03 19:38] VITALS: BP 141/60
--- NOTE | 2021-01-03 20:06 | NUR ---
Assumed pt care this am vs stable, pain managed with medication. 2 ALVARO drains with scant out put. Midline incision with lluvia c/d/i, dressing changed. FC draining dark yellow urine, PICC line in place and patent. Report given to N[facility] the [facility], pt is awaiting [facility] the [facility]. POC followed, endorsed to the night nurse.
--- NOTE | 2021-01-03 21:28 | NUR ---
Assumed pt care at 1900 A/OX3-4 forgetful but able to voice needs. VSS. [facility] to [facility] appro[facility] via stret[facility] by [facility].All personal belongings sent with pt.
== END 2021-01-03 20:45 | disposition short-term general hospital (02) | DRG 871 ==
LOC: ER 21:03 → EROBS 12-23 01:41 → ICU 12-23 01:41 → 2N 12-28 13:42 → 4W 12-31 07:40
PROVIDERS: Emergency Medicine; Hospitalist; Nurse Practitioner Family; Pediatrics; Specialist; Urology; ADMIT Hospitalist; ATTEND Hospitalist
PROC: 5A09357 Assistance with Respiratory Ventilation, Less than 24 Consecutive Hours, Continuous Positive Airway Pressure (ICD-10-PCS; principal; 2020-12-23)
PROC: 0T2BX0Z Change Drainage Device in Bladder, External Approach (ICD-10-PCS; 2020-12-24)
PROC: 5A09357 Assistance with Respiratory Ventilation, Less than 24 Consecutive Hours, Continuous Positive Airway Pressure (ICD-10-PCS; 2020-12-24)
PROC: 02HV33Z Insertion of Infusion Device into Superior Vena Cava, Percutaneous Approach (ICD-10-PCS; 2020-12-25)
PROC: 0J9C00Z Drainage of Pelvic Region Subcutaneous Tissue and Fascia with Drainage Device, Open Approach (ICD-10-PCS; 2020-12-26)
DX: A41.50 Gram-negative sepsis, unspecified (principal); R65.21 Severe sepsis with septic shock; J96.01 Acute respiratory failure with hypoxia; N17.0 Acute kidney failure with tubular necrosis; G92 Toxic encephalopathy; E43 Unspecified severe protein-calorie malnutrition; J69.0 Pneumonitis due to inhalation of food and vomit; N17.9 Acute kidney failure, unspecified; N39.0 Urinary tract infection, site not specified; E87.1 Hypo-osmolality and hyponatremia; S36.892A Contusion of other intra-abdominal organs, initial encounter; K56.7 Ileus, unspecified; N41.2 Abscess of prostate; R34 Anuria and oliguria; Z20.822 Contact with and (suspected) exposure to COVID-19; H54.62 Unqualified visual loss, left eye, normal vision right eye; E11.40 Type 2 diabetes mellitus with diabetic neuropathy, unspecified; E11.22 Type 2 diabetes mellitus with diabetic chronic kidney disease; I12.9 Hypertensive chronic kidney disease with stage 1 through stage 4 chronic kidney disease, or unspecified chronic kidney disease; E78.5 Hyperlipidemia, unspecified; D64.9 Anemia, unspecified; N40.1 Benign prostatic hyperplasia with lower urinary tract symptoms; I25.10 Atherosclerotic heart disease of native coronary artery without angina pectoris; I25.5 Ischemic cardiomyopathy; R53.81 Other malaise; N18.9 Chronic kidney disease, unspecified; Z79.1 Long term (current) use of non-steroidal anti-inflammatories (NSAID); I25.2 Old myocardial infarction; X58.XXXA Exposure to other specified factors, initial encounter; Y93.89 Activity, other specified; Y92.89 Other specified places as the place of occurrence of the external cause; Y99.8 Other external cause status
CPT/HCPCS: 10045; 10047; 10078; 10081; 50101; 50331; 50386; 50455; 51412; 56527; 56529; 57092; 57103; 70005